=== PATIENT | male | born 1985 | race Caucasian/White ===

== ENCOUNTER 2019-12-13 09:33 | Emergency (ER) | payer OTHER ==
[~2019-12-13] VITALS: Ht 188 cm; Wt 149.7 kg
[2019-12-13 10:14] LABS: Bilirubin, Urine Neg (Neg); Blood, Urine Neg (Neg); Glucose Qualitative, Urine Neg (Neg); Ketones, Urine Neg (Neg); Leukocyte Esterase, Urine Neg (Neg); Nitrite, Urine Neg (Neg); Protein, Urine Neg (Neg); Specific Gravity, Urine 1.015 (1.003-1.022); Urobilinogen, Urine NORM (Normal)
[2019-12-13 10:20] LABS: Appearance, Urine Clear (Clear); Color, Urine Yellow (P-Yellow)
[2019-12-13] MEDS ORDERED: KETO10 PO (12:11)
[2019-12-13] MEDS ORDERED: LIDO700A20 TOP (12:17)
== END 2019-12-13 12:23 | disposition home or self-care (01) ==
LOC: ER 09:33
PROVIDERS: Emergency Medicine
DX: R10.9 Unspecified abdominal pain (principal); F17.200 Nicotine dependence, unspecified, uncomplicated
CPT/HCPCS: 36415; 74176; 81003; 96374; 99284-25; J1885

== ENCOUNTER 2024-01-31 15:08 | Emergency (ER) | payer SELFPAY ==
[~2024-01-31] VITALS: Ht 170.2 cm; Wt 95.2 kg
[~2024-01-31 15:08] MED LIST: ALBU90OI INH; KETO10 PO; LIDO700A20 TOP; NICO2 PO; PRED20 PO
[2024-01-31 15:16] VITALS: BP 155/105
[2024-01-31] MEDS ORDERED: IBUP800 PO (15:24)
[2024-01-31] MEDS ORDERED: Amoxicillin500 MG PO (15:24)
[2024-01-31] MEDS ORDERED: Ibuprofen 400 MG Tab PO ONE (15:25)
[2024-01-31] MEDS ORDERED: Amoxicillin/Clavulanate K 875 MG Tab PO ONE (15:25)
== END 2024-01-31 15:30 | disposition home or self-care (01) ==
LOC: ER 15:08
DX: K04.7 Periapical abscess without sinus (principal); F17.210 Nicotine dependence, cigarettes, uncomplicated; Z79.52 Long term (current) use of systemic steroids; Z79.899 Other long term (current) drug therapy
CPT/HCPCS: 99282; A9270

== ENCOUNTER 2024-03-31 19:29 | Emergency (ER) | payer SELFPAY ==
[~2024-03-31] VITALS: Ht 185.4 cm; Wt 170.1 kg
[~2024-03-31 19:29] MED LIST changes: +Amoxicillin500 MG PO; +IBUP800 PO
[2024-03-31] MEDS ORDERED: Ipratropium/Albuterol SulF 2.5-0.5MG/3 ML Amp INH PRN (19:40)
[2024-04-01] LABS: BASOPHILS ABSOLUTE AUTO 0.03 K/mm3 (0.00-0.23); BASOPHILS PERCENT AUTO 0 % (0-2); EOSINOPHILS ABSOLUTE AUTO 0.16 K/mm3 (0.00-0.68); EOSINOPHILS PERCENT AUTO 2 % (0-6); Hemoglobin 15.4 g/dL (13.5-17.5); IMMATURE GRAN ABSOLUTE AUTO 0.02 K/mm3 (0.00-0.10); IMMATURE GRAN PERCENT AUTO 0 % (0-1); LYMPHOCYTES ABSOLUTE AUTO 2.21 K/mm3 (0.84-5.20); LYMPHOCYTES PERCENT AUTO 23 % (21-46); MONOCYTES ABSOLUTE AUTO 0.52 K/mm3 (0.16-1.47); MONOCYTES PERCENT AUTO 5 % (4-13); Mean Corpuscular HGB 29.5 pg (26.0-34.0); Mean Corpuscular HGB Conc 32.1 g/dL (31.5-36.5); Mean Corpuscular Volume 92 fL (80-100); Mean Platelet Volume 9.7 fL (9.1-12.4); NEUTROPHILS ABSOLUTE AUTO 6.81 K/mm3 (1.96-9.15); NEUTROPHILS PERCENT AUTO 70 % (41-73); Platelet Count 276 K/mm3 (150-400); RDW Coefficient Variation 13.8 % (11.7-14.2); RDW Standard Deviation 47.1 fL (35.1-46.3); Red Blood Cell Count 5.22 M/mm3 (4.30-5.90); White Blood Cell Count 9.75 K/mm3 (4.00-11.30)
[2024-04-01] MEDS ORDERED: MethylPREDNISolone Sod Succ 125 MG Vial IV ONE (00:10)
[2024-04-01 00:19] LABS: Albumin, Blood 4.1 g/dL (3.4-5.0); Albumin/Globulin Ratio 0.8 (0.8-1.8); Bilirubin, Total 0.4 mg/dL (0.1-1.0); Bun/Creatinine Ratio 16.1 (12.0-20.0); Calcium, Blood 9.7 mg/dL (8.5-10.1); Creatinine, Blood 0.93 mg/dL (0.60-1.20); Potassium, Blood 4.1 mmol/L (3.5-5.5); Total Protein, Blood 9.1 g/dL (6.4-8.2)
[2024-04-01] MEDS ORDERED: PRED20 PO (00:36)
[2024-04-01 01:00] VITALS: BP 163/114
[2024-04-01] MEDS ORDERED: RX Prepack Albuterol 1 PREPACK/6.7 GM INH UD ONE (01:00)
== END 2024-04-01 01:20 | disposition home or self-care (01) ==
LOC: ER 19:29
PROVIDERS: Emergency Medicine
DX: T59.811A Toxic effect of smoke, accidental (unintentional), initial encounter (principal); J68.0 Bronchitis and pneumonitis due to chemicals, gases, fumes and vapors; J68.3 Other acute and subacute respiratory conditions due to chemicals, gases, fumes and vapors; F17.210 Nicotine dependence, cigarettes, uncomplicated; Z79.899 Other long term (current) drug therapy
CPT/HCPCS: 71046; 80053; 84484; 85025; 93005; 93010; 94640; 94664; 96374; 99285-25; A9270; J2919

== ENCOUNTER 2024-05-27 08:53 | Emergency (ER) | payer OTHER ==
[~2024-05-27] VITALS: Ht 182.9 cm; Wt 170.1 kg
[2024-05-27] MEDS ORDERED: Amoxicillin 875 MG Tab PO ONE (10:05)
[2024-05-27] MEDS ORDERED: IBUP800 PO (10:08)
[2024-05-27] MEDS ORDERED: Amoxicillin875 MG PO (10:08)
[2024-05-27] MEDS ORDERED: RX Prepack 6 Tabs Oxycodone 5mg UD ONE (10:10)
[2024-05-27 10:17] VITALS: BP 169/98
== END 2024-05-27 10:18 | disposition home or self-care (01) ==
LOC: ER 08:53
DX: K08.89 Other specified disorders of teeth and supporting structures (principal); F17.210 Nicotine dependence, cigarettes, uncomplicated; Z79.52 Long term (current) use of systemic steroids; Z79.899 Other long term (current) drug therapy
CPT/HCPCS: 99282; A9270

== ENCOUNTER 2024-05-29 11:20 | Emergency (ER) | payer OTHER ==
[~2024-05-29] VITALS: Ht 182.9 cm; Wt 170.1 kg
[~2024-05-29 11:20] MED LIST changes: +Amoxicillin875 MG PO
[2024-05-29] MEDS ORDERED: Morphine Sulfate 4 MG/1 ML Injection IV ONE (11:55)
[2024-05-29] MEDS ORDERED: CefTRIAXone Sodium 1,000 MG in NS 50 ML IV ONE (11:55)
[2024-05-29] MEDS ORDERED: Ketorolac Tromethamine 30mg Vial IV ONE (11:55)
[2024-05-29] MEDS ORDERED: Ondansetron HCl 2 MG / ML 2ML Vial IV ONE (11:55)
[2024-05-29 13:30] VITALS: BP 148/93
[2024-05-29] MEDS ORDERED: PERCOCET 10-321 EA13 PO (13:30)
== END 2024-05-29 14:39 | disposition home or self-care (01) ==
LOC: ER 11:20
DX: K08.89 Other specified disorders of teeth and supporting structures (principal); F17.210 Nicotine dependence, cigarettes, uncomplicated; Z79.52 Long term (current) use of systemic steroids; Z79.899 Other long term (current) drug therapy
CPT/HCPCS: 70487; 96365; 96375; 99284-25; J0696; J1885; J2270; J2405; Q9967

== ENCOUNTER 2024-07-28 19:42 | Emergency (ER) | payer OTHER ==
[~2024-07-28] VITALS: Ht 182.9 cm; Wt 170.1 kg
[~2024-07-28 19:42] MED LIST changes: +ACET500 PO; +AMOCLA875 PO; +IBUP400 PO; +OXYC5 PO; +PERCOCET 10-321 EA13 PO
[2024-07-28 20:09] VITALS: BP 160/86
[2024-07-28] MEDS ORDERED: RX Prepack 6 Tabs Oxycodone 5mg UD ONE (20:20)
== END 2024-07-28 20:22 | disposition home or self-care (01) ==
LOC: ER 19:42
DX: S02.5XXA Fracture of tooth (traumatic), initial encounter for closed fracture (principal); F17.210 Nicotine dependence, cigarettes, uncomplicated; Z79.899 Other long term (current) drug therapy; X58.XXXA Exposure to other specified factors, initial encounter
CPT/HCPCS: 99282; A9270

== ENCOUNTER 2024-07-29 17:00 | Observation (INO) | payer OTHER ==
[~2024-07-29] VITALS: Ht 182.9 cm; Wt 158.8 kg
[2024-07-29] MEDS ORDERED: Nicotine 21 MG PATCH TOP ONE (17:55)
[2024-07-29] MEDS ORDERED: Nicotine Polacrilex 2 MG Gum PO PRN (17:55)
[2024-07-29 18:29] LABS: Source, Urine Clean Catch
[2024-07-29 18:35] LABS: Appearance, Urine Clear (Clear); Bilirubin, Urine Neg (Neg); Blood, Urine Neg (Neg); Color, Urine Yellow (P-Yellow); Glucose Qualitative, Urine Neg (Neg); Ketones, Urine Neg (Neg); Leukocyte Esterase, Urine Neg (Neg); Nitrite, Urine Neg (Neg); Protein, Urine Neg (Neg); Urobilinogen, Urine NORM (Normal)
[2024-07-29 18:50] LABS: U Amphetamine Screen Not Detected; U Barbituate Screen Not Detected; U Benzodiazapine Screen Not Detected; U Buprenorphine Screen Not Detected; U Cannabinoids Screen Not Detected; U Cocaine Screen Not Detected; U Methadone Screen Not Detected; U Methamphetamine Screen Not Detected; U Opiates Screen Not Detected; U Oxycodone Screen DETECTED; U Phencyclidine Screen Not Detected
[2024-07-29 18:53] LABS: BASOPHILS ABSOLUTE AUTO 0.04 K/mm3 (0.00-0.23); BASOPHILS PERCENT AUTO 0 % (0-2); EOSINOPHILS ABSOLUTE AUTO 0.09 K/mm3 (0.00-0.68); EOSINOPHILS PERCENT AUTO 1 % (0-6); Hematocrit 42.5 % (37.0-53.0); Hemoglobin 13.9 g/dL (13.5-17.5); IMMATURE GRAN ABSOLUTE AUTO 0.03 K/mm3 (0.00-0.10); IMMATURE GRAN PERCENT AUTO 0 % (0-1); LYMPHOCYTES ABSOLUTE AUTO 1.99 K/mm3 (0.84-5.20); LYMPHOCYTES PERCENT AUTO 20 % (21-46); MONOCYTES ABSOLUTE AUTO 0.59 K/mm3 (0.16-1.47); MONOCYTES PERCENT AUTO 6 % (4-13); Mean Corpuscular HGB Conc 32.7 g/dL (31.5-36.5); Mean Corpuscular Volume 92 fL (80-100); Mean Platelet Volume 9.9 fL (9.1-12.4); NEUTROPHILS ABSOLUTE AUTO 7.41 K/mm3 (1.96-9.15); NEUTROPHILS PERCENT AUTO 73 % (41-73); Platelet Count 272 K/mm3 (150-400); RDW Standard Deviation 47.5 fL (35.1-46.3); Red Blood Cell Count 4.64 M/mm3 (4.30-5.90); White Blood Cell Count 10.15 K/mm3 (4.00-11.30)
[2024-07-29 19:22] LABS: Ethanol (Alcohol), Blood, Med <3 mg/dL; Salicylate 2.7 mg/dL (2.8-20.0)
[2024-07-29 19:35] LABS: Alanine Aminotransfer (ALT/SGP 47 U/L (12-78); Albumin, Blood 3.8 g/dL (3.4-5.0); Albumin/Globulin Ratio 0.8 (0.8-1.8); Alk Phos 97 U/L (50-136); Anion Gap 8 mmol/L (3-11); Aspartate Aminotrans (AST/SGOT 32 U/L (12-37); Bilirubin, Total 0.6 mg/dL (0.1-1.0); Blood Urea Nitrogen 15 mg/dL (8-24); Bun/Creatinine Ratio 17.2 (12.0-20.0); CO2, Blood 26 mmol/L (21-32); Calcium, Blood 9.5 mg/dL (8.5-10.1); Chloride, Blood 106 mmol/L (98-108); Creatinine, Blood 0.87 mg/dL (0.60-1.20); Globulin, Blood 4.6 g/dL (2.2-4.0); Glomerular Filtration Rate 112 (60-); Glucose, Blood 95 mg/dL (70-99); Sodium, Blood 136 mmol/L (136-145); Total Protein, Blood 8.4 g/dL (6.4-8.2)
[2024-07-29 19:36] LABS: Acetaminophen, Random <2.0 ug/mL (10.0-30.0)
[2024-07-29 21:30] VITALS: BP 157/90
[2024-07-29] MEDS ORDERED: Ibuprofen 600 MG Tab PO ONE (23:45)
== END 2024-07-30 10:23 | disposition home or self-care (01) ==
LOC: ER 17:00 → EOR 20:50
PROVIDERS: Physician Assistant; ADMIT Emergency Medicine
DX: R45.851 Suicidal ideations (principal); F17.210 Nicotine dependence, cigarettes, uncomplicated; F43.12 Post-traumatic stress disorder, chronic; Z91.51 Personal history of suicidal behavior; Z79.2 Long term (current) use of antibiotics
CPT/HCPCS: 80053; 80320; 81003; 85025; 99285; A9270; G0378; G0480

== ENCOUNTER 2025-03-07 21:44 | Emergency (ER) | payer OTHER ==
[~2025-03-07] VITALS: Ht 188 cm; Wt 181.4 kg
[2025-03-07 22:04] VITALS: BP 161/133
[2025-03-07 22:43] LABS: BASOPHILS ABSOLUTE AUTO 0.04 K/mm3 (0.00-0.23); BASOPHILS PERCENT AUTO 0 % (0-2); EOSINOPHILS ABSOLUTE AUTO 0.18 K/mm3 (0.00-0.68); EOSINOPHILS PERCENT AUTO 2 % (0-6); Hematocrit 40.7 % (37.0-53.0); Hemoglobin 13.4 g/dL (13.5-17.5); IMMATURE GRAN ABSOLUTE AUTO 0.03 K/mm3 (0.00-0.10); IMMATURE GRAN PERCENT AUTO 0 % (0-1); LYMPHOCYTES ABSOLUTE AUTO 2.52 K/mm3 (0.84-5.20); LYMPHOCYTES PERCENT AUTO 25 % (21-46); MONOCYTES ABSOLUTE AUTO 0.52 K/mm3 (0.16-1.47); MONOCYTES PERCENT AUTO 5 % (4-13); Mean Corpuscular HGB Conc 32.9 g/dL (31.5-36.5); Mean Corpuscular Volume 89 fL (80-100); NEUTROPHILS ABSOLUTE AUTO 6.66 K/mm3 (1.96-9.15); NEUTROPHILS PERCENT AUTO 67 % (41-73); NRBC ABSOLUTE 0.00 K/mm3 (0.00-0.02); NRBC Auto 0.0 /100 WBC (0.0-0.2); Platelet Count 250 K/mm3 (150-400); RDW Coefficient Variation 14.1 % (11.7-14.2); RDW Standard Deviation 45.5 fL (35.1-46.3)
[2025-03-07 23:04] LABS: Alanine Aminotransfer (ALT/SGP 60.0 U/L (12-78); Albumin, Blood 3.6 g/dL (3.4-5.0); Albumin/Globulin Ratio 0.9 (0.8-1.8); Anion Gap 8.0 mmol/L (3-11); Aspartate Aminotrans (AST/SGOT 35.0 U/L (12-37); Bilirubin, Total 0.3 mg/dL (0.1-1.0); Blood Urea Nitrogen 14.0 mg/dL (8-24); CO2, Blood 27.0 mmol/L (21-32); Calcium, Blood 9.3 mg/dL (8.5-10.1); Chloride, Blood 106.0 mmol/L (98-108); Creatinine, Blood 0.83 mg/dL (0.60-1.20); Globulin, Blood 4.1 g/dL (2.2-4.0); Glucose, Blood 143.0 mg/dL (70-99); Potassium, Blood 3.6 mmol/L (3.5-5.5); Sodium, Blood 137.0 mmol/L (136-145); Total Protein, Blood 7.7 g/dL (6.4-8.2)
[2025-03-07] MEDS ORDERED: CEPH500 PO (23:49)
== END 2025-03-07 23:58 | disposition home or self-care (01) ==
LOC: ER 21:44
PROVIDERS: Emergency Medicine
DX: L03.116 Cellulitis of left lower limb (principal); D64.9 Anemia, unspecified; F17.200 Nicotine dependence, unspecified, uncomplicated
CPT/HCPCS: 80053; 83036; 85025; 99283; A9270